=== PATIENT | female | born 1995 | race Caucasian/White ===

== ENCOUNTER 2022-12-02 08:37 | Observation (INO) | payer BC, SELFPAY ==
[2022-12-02 09:15] VITALS: BMI 40.6
[2022-12-02 09:16] LABS: Appearance Urine Clear (Clear); Bilirubin Urine Negative (Negative); Blood Urine Negative (Negative); Color Urine Yellow (Yellow); Glucose Urine UA Negative (Negative); Ketones Urine Negative (Negative); Leukocyte Esterase Ur 1+ LEU/UL (Negative); Nitrate Urine Negative (Negative); Protein Urine Negative (Negative); Specific Grav Ur 1.015 (1.001-1.035); Urobilinogen Urine 0.2 mg/dL (<2.0); pH Urine 7.5 (5.0-9.0)
--- NOTE | 2022-12-02 09:16 | OBADM ---
This patient, Ozzy Mchugh, admitted to the OB room [facility] for observation. Patient/family oriented to hospital policies and general routines including ID bracelet, bed and alarms, visiting hours, pain management, procedures, bathroom and other care routines, personal items, smoking policy, room service/diet, and visiting hours. Patient/Family are encouraged to report perceived risks to care and to ask questions if they do not understand what they are told or what they should do.
[2022-12-02 09:34] LABS: Bacteria Urine Trace /hpf; Squamous Epithelial Cell Urine Few /hpf (Few); WBC Urine 0-3 /hpf
[2022-12-02 11:13] LABS: Add Urine Microscopic? YES
--- NOTE | 2022-12-12 07:39 | P.PNOB_ITS ---
OB - Triage/Final Diagnosis Visit Information Comments/Additional reasons for admission: I have assessed the risk for this patient, Ozzy Mchugh, and determined that she would benefit from observation care. Evaluation Laboratory results: Laboratory Tests 12/02/22 09:02 Urine Color Yellow Urine Appearance Clear Urine pH 7.5 Ur Specific [place] 1.015 Urine Protein Negative Urine Glucose (UA) Negative Urine Ketones Negative Ur Blood (Man) Negative Urine Nitrate Negative Urine Bilirubin Negative Urine Urobilinogen 0.2 Leukocyte Esterase Rfl 1+ H Urine WBC 0-3 Ur Squamous Epith Cells Few Urine Bacteria Trace Final Diagnosis (1) Abdominal pain affecting : Code(s): O26.899 - Other specified related conditions, unspecified trimester; R10.9 - Unspecified abdominal pain Status: Acute
== END 2022-12-02 09:45 | disposition home or self-care (01) ==
PROVIDERS: Admitting Provider Obstetrics & Gynecology; PCP Physician Assistant; Visit Provider Obstetrics & Gynecology
DX: O26.899 Other specified pregnancy related conditions, unspecified trimester (principal); R10.9 Unspecified abdominal pain
CPT/HCPCS: 81001; G0378; G0379

== ENCOUNTER 2023-04-29 16:47 | Inpatient (IN) | payer BC, SELFPAY ==
[2023-04-29] VITALS (13 sets, daily range): BP systolic 115–135; BP diastolic 55–76; PULSE 76–88; TEMP 36.5; BMI 43.2
[2023-04-29 17:33] LABS: Basophils Percent Auto 0.3 % (0.2-1.2); Eosinophils Percent Auto 0.4 % (0-4.4); Hematocrit 33.5 % (37.0-47.0); Hemoglobin 10.7 g/dL (12.0-15.0); Immature Granulocyte Absolute 0.12 K/mm3 (0.00-0.031); Immature Granulocyte Percent A 1.1 % (0-0.5); Lymphocytes Absolute Auto 1.61 K/mm3 (0.9-3.2); Lymphocytes Percent Auto 15.3 % (18.3-44.2); Mean Corpuscular HGB Conc 31.9 g/dl (32-36); Mean Corpuscular Volume 84.6 fl (80-100); Monocytes Absolute Auto 0.3 K/mm3 (0.1-0.6); Monocytes Percent Auto 3.1 % (2.6-8.5); Neutrophils Absolute Auto 8.4 K/mm3 (1.3-6.7); Neutrophils Percent Auto 79.8 % (45.5-73.1); Platelet Count Result 223 k/mm3 (150-375); Red Blood Count 3.96 M/mm3 (4.2-5.4); Red Cell Distribution Width 16.9 % (11.5-14.5); White Blood Count 10.5 K/mm3 (4.5-10.0)
--- NOTE | 2023-04-29 17:37 | LDADM ---
This patient, Ozzy Mchugh, was admitted to Labor/Delivery/Recovery 107 on 04/29/23 at 16:47. Plans for labor, pain management and were discussed with patient. Patient/family oriented to hospital policies and general routines including ID bracelet, bed and alarms, visiting hours, pain management, procedures, bathroom and other care routines, personal items, smoking policy, room service/diet and guest tray routines, security routines, and visiting hours. Patient/Family are encouraged to report perceived risks to care and to ask questions if they do not understand what they are told or what they should do. See OBIX for further documentation.
[2023-04-29] MEDS: DINOPROSTONE 10 MG VAG INSERT VAGINAL (17:48)
[2023-04-30] VITALS (211 sets, daily range): BP systolic 85–140; BP diastolic 41–124; PULSE 25–155; RESP 18; TEMP 36.2–37; O2SAT 91–100
[2023-04-30] MEDS: ACETAMINOPHEN 500 MG TABLET 1000 MG PO (00:57)
[2023-04-30] MEDS: fentaNYL CITRATE INJ (*CRX) 100 MCG/2 ML VIAL IV PUSH (04:58)
[2023-04-30] MEDS: OXYTOCIN 30 UNITS/NS 500 ML 30 UNITS/500 ML BAG IV CONT (06:21)
[2023-04-30] MEDS: LACTATED RINGERS 1,000 ML 125 ML IV CONT ×2 (06:21→06:50)
--- NOTE | 2023-04-30 06:48 | P.PNAN_ITS ---
Anes - Eval Pre Procedure Procedure: labor epidural Date/Time: 04/30/23 06:48 Surgeon: robbie Preop Diagnosis: pain during labor Pre Op Diagnosis: iol Patient Data Age: 28 Gender: F Height: 1.65 m Weight: 118 kg Last Vital Signs Temp 36.5 C 04/29/23 20:00 Pulse 72 04/30/23 06:46 BP 140/124 H 04/30/23 06:46 Pulse Ox 99 04/30/23 05:56 O2 Del Method Room Air 04/29/23 17:36 Allergies Allergy/AdvReac Type Severity Reaction Status Date / Time No Known Allergies Allergy Verified 04/14/23 14:31 Home Medications Medication Instructions Recorded Confirmed Type Classic 1 tab-cap PO DAILY 04/14/23 04/14/23 History ferrous sulfate 47.5 mg PO DAILY 04/29/23 04/29/23 History Laboratory Tests 04/29/23 17:10 WBC 10.5 H K/mm3 (4.5-10.0) RBC 3.96 L M/mm3 (4.2-5.4) Hgb 10.7 L g/dL (12.0-15.0) Hct 33.5 L % (37.0-47.0) MCV 84.6 fl (80-100) MCH 27.0 pg (26-34) MCHC 31.9 L g/dl (32-36) RDW 16.9 H % (11.5-14.5) Plt Count 223 k/mm3 (150-375) MPV 10.0 fl (7.4-10.4) Immature Gran % (Auto) 1.1 H % (0-0.5) Neut % (Auto) 79.8 H % (45.5-73.1) Lymph % (Auto) 15.3 L % (18.3-44.2) [place] % (Auto) 3.1 % (2.6-8.5) Eos % (Auto) 0.4 % (0-4.4) Baso % (Auto) 0.3 % (0.2-1.2) Lymph # (Auto) 1.61 K/mm3 (0.9-3.2) [place] # (Auto) 0.3 K/mm3 (0.1-0.6) Eos # (Auto) 0.0 K/mm3 (0-0.3) Baso # (Auto) 0.0 K/mm3 (0.0-0.1) Abs Immat Gran (auto) 0.12 H K/mm3 (0.00-0.031) Absolute Neuts (auto) 8.4 H K/mm3 (1.3-6.7) Absolute Nucleated RBC 0.0 K/mm3 (0.0-0.012) Nucleated RBC % 0.0 % (0.0-0.2) RPR Pending Blood Type O Positive Antibody Screen Negative Patient hx anesthesia problems: none Family hx anesthesia problems: none Results Review: All pre-operative results and documents have been reviewed as part of the pre- operative evaluation. COUNT INCLUDES THE [facility] Family History Family History (Updated 04/14/23 @ 14:39 by Afia Kenney RN) Other Unknown family medical history Social History Social History Smoking status: Never smoker Substance use: never Lack of Transportation: No Lack of Food: Never True Current Housing: I Have Housing Concerned About Future Housing: No Difficulty Paying Gas/Electric Bills: No Difficulty Paying for Meds: No Currently Unemployed: No Education: High School Diploma/GED Difficulty w/ Childcare or Family Care: No Spiritual care concerns: No Exam Day of Procedure 04/30/23 06:48
[2023-04-30] MEDS: ONDANSETRON INJ 4 MG/2 ML VIAL IV PUSH ×2 (07:38→14:10)
--- NOTE | 2023-04-30 08:34 | WPDOBADMIT ---
Obstetrics - Admit Note Admission Note: record reviewed. Additions to the history and/or subsequent changes in the physical findings follow. 28 y/o at 39 1/7 weeks here for induction of labor. Cervidil overnight, has been with drawn. Now comfortable with epidural. GBS neg. AVSS ABD soft, nontender, gravid, vertex EXT nontender Cervix 3/50/-2. AROM with clear fluid. IUPC placed. Vertex. A: IUP at term, desiring induction of labor. P: Oxytocin. Anticipate .
[2023-04-30] MEDS: PHENYLEPHRINE 1,000 MCG/10 ML SYRINGE 100 MCG IV PUSH ×2 (09:04→09:13)
[2023-04-30] MEDS: SODIUM CHLORIDE 0.9% IV 300 ML 600 ML I-UTERINE (14:06)
--- NOTE | 2023-04-30 15:56 | PM.OBPRVD ---
OB - Delivery Note Procedure Delivery date: 04/30/23 Procedure: Induction of labor with Induction method: Per Cervidil Protocol Delivery augmentation: Pitocin Delivery monitor: External FHT, External Uterine and Internal Uterine Route of delivery: Laceration Description: None Specimen: Yes (cord blood) Quantitative Blood Loss (ml): 80 Anesthesia type: Epidural Disposition: PACU Complications: None Narrative: 28 y/o at 39 1/7 weeks gestation who presented to the hospital for induction of labor. Cervidil was placed overnight, then withdrawn the next morning. Oxytocin was administered intravenously. Amniotomy was performed with return of clear fluid. She received an epidural for pain control. Her labor progressed and her cervix dilated completely. She pushed with good effort and delivered the 's head to the perineum. A loose nuchal cord was splinted and the body delivered. The cord was reduced. The nose and mouth were bulb suctioned. After a delay, the cord was clamped and cut. The infant was handed off the field. Cord blood was collected. The placenta delivered spontaneously and was grossly normal in appearance. The usual 3 vessel cord was noted. There were no lacerations. Needle and instrument counts were correct. The patient was taken to recovery room in stable condition. The went to the nursery in stable condition. I was present and scrubbed for the entire delivery. [place] Baby Date of : 04/30/23 Time of : 15:44 Weeks of gestation at delivery: 39 Infant gender: Female Weight (pounds): 6 Weight (ounces): 2 presentation: vertex position: Left Occiput Anterior Placenta delivery description: Spontaneous and Normal Configuration Cord Vessel Description: 3 Vessels, Nuchal Cord (x1) and Delayed Cord Clamping score one minute: 9 score five minutes: 9
[2023-04-30] MEDS: OXYTOCIN 30 UNITS/NS 500 ML 30 UNITS/500 ML BAG 125 UNITS IV CONT (15:57)
--- NOTE | 2023-04-30 16:00 | PM.OBDSVD ---
DS: Admitting Diagnosis Discharge Date 05/01/23 Admitting Diagnosis IUP at 39 1/7 weeks DS: Discharge Diagnosis Discharge Diagnosis (1) (normal spontaneous vaginal delivery): Code(s): O80 - Encounter for full-term uncomplicated delivery Status: Acute OB - DS: Summary OB Procedures : None OB Procedures Intrapartum: Spontaneous Vag Delivery OB Procedures: : None Time Spent with Patient Time attestation: Total time spent providing and/or coordinating discharge services: DS: Data Data Completed and Pending Labs on day of discharge: Labs from last 24 hours 04/29/23 17:10 WBC 10.5 H RBC 3.96 L Hgb 10.7 L Hct 33.5 L MCV 84.6 MCH 27.0 MCHC 31.9 L RDW 16.9 H Plt Count 223 MPV 10.0 Immature Gran % (Auto) 1.1 H Neut % (Auto) 79.8 H Lymph % (Auto) 15.3 L [place] % (Auto) 3.1 Eos % (Auto) 0.4 Baso % (Auto) 0.3 Lymph # (Auto) 1.61 [place] # (Auto) 0.3 Eos # (Auto) 0.0 Baso # (Auto) 0.0 Abs Immat Gran (auto) 0.12 H Absolute Neuts (auto) 8.4 H Absolute Nucleated RBC 0.0 Nucleated RBC % 0.0 RPR Pending Blood Type O Positive Antibody Screen Negative Discharge Plan Discharge Attending physician on discharge: Gene Eaton Discharging Clinician: Gene Eaton Patient Disposition: Home, Self-Care Activity: pelvic rest Diet: regular Discharge Instructions: Call or return if temperature above 100.4? F, increased abdominal pain, increased vaginal bleeding or any new problems. Stand Alone Forms: General Discharge Information Follow-up/Referrals: Gene Eaton MD [Physician] - 6 Weeks Discharge Medications: New ibuprofen 600 mg tablet 600 mg PO Q6H PRN (Reason: cramps) Qty: 30 0RF Continued Classic 1 tab-cap PO DAILY Slow Fe 47.5 mg iron Tablet Extended Release 47.5 mg PO DAILY Date of admission: 04/29/23 16:47 Primary Care Provider: Tia,Radha Admitting Provider: Gene Eaton Attending physician on admission: Gene Eaton Condition: Stable
[2023-04-30] MEDS: WITCH HAZEL 40 PADS 1 PAD TOPICAL (17:52)
[2023-04-30] MEDS: BENZOCAINE 20% AER SPR (*SP) 56 GM CAN 1 SPRAY TOPICAL (17:52)
[2023-04-30] MEDS: IBUPROFEN 600 MG TABLET PO (18:49)
[2023-05-01] MEDS: IBUPROFEN 600 MG TABLET PO ×2 (03:29→13:26)
[2023-05-01 03:49] VITALS: BP 110/62; PULSE 68; RESP 18; TEMP 36.8; O2SAT 99
[2023-05-01 04:15] LABS: Hematocrit 32.6 % (37.0-47.0); Hemoglobin 10.4 g/dL (12.0-15.0)
[2023-05-01] MEDS: MULTIVIT/MIN/PREN/FOL AC/IRON TABLET 1 TAB PO (08:18)
[2023-05-01 08:40] VITALS: BP 113/66; PULSE 62; RESP 18; TEMP 36.7; O2SAT 99
--- NOTE | 2023-05-01 08:53 | PM.OBPNVD ---
OB - PN: Subj Subjective Date/time seen: 05/01/23 08:53 Narrative: Pain OK. Would like to go home. OB - PN: Obj Data Labs 05/01/23 03:36 Labs: Laboratory Results - last 24 hr 05/01/23 03:36 Hgb 10.4 L Hct 32.6 L OB - PN A/P Plan day: 1 Comments: A: PPD#1, doing well. P: Home to f/u 6 weeks. Exam Psych: Other: AVSS ABD soft, nontender, fundus firm EXT nontender
[2023-05-01 09:44] LABS: Rapid Plasma Reagin Non-Reactive (NonReactive)
[2023-05-01 11:45] VITALS: BP 105/57; PULSE 67; RESP 18; TEMP 36.8; O2SAT 98
--- NOTE | 2023-05-01 11:47 | WPDANLDPN2 ---
Anes-Prog Note L&D Date/Time: 05/01/23 11:47 Neuro status: Neuro function grossly intact. Vital Signs: Last Vital Signs Temp 36.7 C 05/01/23 08:40 Pulse 62 05/01/23 08:40 Resp 18 05/01/23 08:40 BP 113/66 05/01/23 08:40 Pulse Ox 99 05/01/23 08:40 O2 Del Method Room Air 04/30/23 19:26 Pain score (VAS): 0 I/O: Intake & Output 04/30/23 05/01/23 05/01/23 23:59 07:59 15:59 Intake Total 240 Output Total 130 Balance -130 240 Patient feedback: Patient satisfied with anesthetic care.
--- NOTE | 2023-05-01 13:03 | PC.NURSE ---
1225 Introductions were made, then consulted with patient to assess needs related to . Mother led the conversation with her?plans to feed?her and the?experience so far. Mother works well with her with encouragement and education. Encouraged understanding of the benefits of skin to skin (demonstrating unwrapping and placing upright on her chest), stimulating with massage touch, changing positions to encourage wakefulness, how to watch for early feeding cues, responsive feeding, feeding on demand (aiming for 8-12 times in 24 hours, about every 2-3 hours), milk production, building/maintaining a milk supply, duration of feeding, signs of adequate intake/output and how to record on the feeding sheet. Reviewed positioning and ear, shoulder, hip alignment, supporting the breast to facilitate a deep latch, asymmetrical latch (off-center), leading with the chin with a big, open, wide gape and body close to mother. Infant latched optimally to the [right/left] breast in [football/cross cradle/laid-back] position. Education given to mother of how to visualize suck/swallow ratios and listen for drinking at the breast. was [able/unable] to maintain latch without discomfort to mother. Nipple care reviewed with optimal latch and good positioning. Also provided teaching on how to properly detach from the breast. Reminding mother of comfort measures of healing with a warm and wet washcloth to rinse breast, then leave open to air-dry as needed. Reviewed good handwashing when or touching the breast/nipples to prevent infection. Resources used to facilitate learning were used with the [visual handouts/QR codes/ tool/mom and baby guide]. Mother voiced understanding of skin to skin, stimulating with massage touch, responsive feedings, hand expressed colostrum, talking to to encourage if it has been 2 -2.5 hours since the start of the last , to call if infant does not latch, or if there is discomfort with . Resources provided for inpatient/outpatient with business card, feeding sheet and the mom/baby guide. Parents voiced understanding of information, demonstrated learning and will call if there is a request for assistance. Reported to primary RN.
[2023-05-01] MEDS: DOCUSATE SODIUM 100 MG CAPSULE PO (13:26)
[2023-05-02 11:21] VITALS: BP 113/74; PULSE 70; RESP 18; TEMP 36.7; O2SAT 100
== END 2023-05-01 18:10 | disposition home or self-care (01) | DRG 807 ==
LOC: ANHLDR 04-30 16:01 → ANHOB2 04-30 18:50
PROVIDERS: Admitting Provider Obstetrics & Gynecology; PCP Physician Assistant; Visit Provider Obstetrics & Gynecology
DX: O62.3 Precipitate labor (principal); Z37.0 Single live birth; O69.81X0 Labor and delivery complicated by cord around neck, without compression, not applicable or unspecified; Z3A.39 39 weeks gestation of pregnancy
CPT/HCPCS: 36415; 85014; 85018; 85025; 86592; 86850; 86900; 86901; A9270; J2371; J2405; J2590; J2795; J3010; J7030; J7120